=== PATIENT | female | born 1950 | race Caucasian/White ===

== ENCOUNTER 2021-08-31 09:33 | Observation (INO) | payer MEDICARE, BC ==
[2021-08-31] MEDS ORDERED: Labetalol HCl 100 MG/20 ML VIAL ONE (09:55)
[2021-08-31] MEDS ORDERED: Hydrochlorothiazide 25 MG TAB PO SCH (10:30)
[2021-08-31 10:35] LABS: #Basophils 0.1 thou/uL (0.0-0.2); #Eosinphils 0.1 thou/uL (0.0-0.7); #Lymphocytes 1.7 thou/uL (1.20-3.40); #Monocytes 0.4 thou/uL (0.11-0.59); #Neutrophils 3.2 thou/uL (1.40-6.50); %Basophils 0.9 % (0.0-1.0); %Eosinophils 2.1 % (0.0-10.0); %Lymphocytes 30.9 % (21.0-51.0); %Monocytes 7.6 % (0.0-10.0); %Neutrophils 58.5 % (42.0-75.0); Hemoglobin 15.5 g/dL (12.0-16.0); Mean Corpuscular HGB CONC 33.4 g/dL (32.0-36.0); Mean Corpuscular Hemoglobin 32.8 pg (27.0-31.0); Mean Corpuscular Volume 98.3 fL (78.0-98.0); Mean Platelet Volume 7.7 fL (7.4-10.4); Platelet Count 250 thou/uL (130-400); RBC Distribution Width 11.8 % (11.5-14.5); Red Blood Cell (RBC) Count 4.71 mill/uL (4.20-5.40); White Blood Cell (WBC) Count 5.4 thou/uL (4.8-10.8)
[2021-08-31 10:59] LABS: ALT (SGPT) 21 U/L (8-55); AST (SGOT) 20 U/L (5-34); Albumin 4.9 g/dL (3.4-4.8); Alkaline Phosphatase 81 U/L (40-110); Anion Gap 14 mmol/L (10-20); BUN (Urea Nitrogen) 16 mg/dL (9.8-20.1); Bilirubin, Total 0.5 mg/dL (0.2-1.2); Calc. Creatinine Clearance 0 mL/min (70-130); Calcium 9.8 mg/dL (7.8-10.44); Carbon Dioxide 29 mmol/L (23-31); Chloride 105 mmol/L (98-107); Globulin 3.1 g/dL (2.4-3.5); Glucose 111 mg/dL (80-115); Magnesium 2.3 mg/dL (1.6-2.6); Potassium 3.9 mmol/L (3.5-5.1); Sodium 144 mmol/L (136-145)
[2021-08-31] MEDS ORDERED: Aspirin Chewable 81 MG TAB ONE ×2 (11:49)
[2021-08-31] MEDS ORDERED: Iopamidol-370 76% 500 ML 1 ML ONE (16:06)
[2021-08-31] MEDS ORDERED: Acetaminophen 325 MG TAB PO PRN (17:06)
[2021-08-31] MEDS ORDERED: Ondansetron ODT 4 MG TAB PO PRN (17:06)
[2021-08-31 19:48] VITALS: BMI 23.5
[2021-08-31] MEDS ORDERED: hydrALAZINE 20 MG/ML VIAL SLOW IVP PRN (21:17)
[2021-08-31] MEDS: Heparin 5,000 UNITS/ML VIAL SC SCH (21:25)
[2021-08-31] MEDS: Metoprolol Tartrate 25 MG TAB PO SCH (21:34)
[2021-08-31] MEDS: Famotidine 20 MG TAB PO SCH (21:34)
[2021-09-01 05:23] LABS: #Eosinphils 0.2 thou/uL (0.0-0.7); #Lymphocytes 1.7 thou/uL (1.20-3.40); #Monocytes 0.5 thou/uL (0.11-0.59); #Neutrophils 3.4 thou/uL (1.40-6.50); %Basophils 0.8 % (0.0-1.0); %Eosinophils 3.6 % (0.0-10.0); %Lymphocytes 29.4 % (21.0-51.0); %Monocytes 8.2 % (0.0-10.0); Hemoglobin 15.2 g/dL (12.0-16.0); Mean Corpuscular Hemoglobin 32.3 pg (27.0-31.0); Mean Corpuscular Volume 97.9 fL (78.0-98.0); Mean Platelet Volume 7.8 fL (7.4-10.4); Platelet Count 257 thou/uL (130-400); RBC Distribution Width 11.9 % (11.5-14.5); White Blood Cell (WBC) Count 5.8 thou/uL (4.8-10.8)
[2021-09-01 05:53] LABS: Anion Gap 14 mmol/L (10-20); BUN (Urea Nitrogen) 12 mg/dL (9.8-20.1); Calc. Creatinine Clearance 71 mL/min (70-130); Calcium 9.8 mg/dL (7.8-10.44); Carbon Dioxide 29 mmol/L (23-31); Cardiac Risk 2.7 (Less than 4.5); Chloride 100 mmol/L (98-107); Cholesterol 194 mg/dl (< 200 Desired); Glucose 95 mg/dL (80-115); HDL Cholesterol 72 mg/dL (>60 Neg Risk); LDL Cholesterol, Calculated 92 mg/dL; Potassium 3.6 mmol/L (3.5-5.1); Sodium 139 mmol/L (136-145); Triglycerides 151 mg/dL (Less than 150)
[2021-09-01] MEDS ORDERED: Losartan 25 MG TAB PO SCH (09:00)
[2021-09-01] MEDS ORDERED: Erythromycin Base 0.5% Oint 1 GM TUBE EA EYE SCH ×2 (09:00→15:00)
[2021-09-01] MEDS ORDERED: Aspirin 81 mg Enteric Coated Tablet PO SCH (09:00)
[2021-09-01] MEDS: Metoprolol Tartrate 25 MG TAB PO SCH (10:18)
[2021-09-01] MEDS: Heparin 5,000 UNITS/ML VIAL SC SCH (10:23)
[2021-09-01] MEDS: Famotidine 20 MG TAB PO SCH (11:07)
[2021-09-01 15:33] VITALS: TEMP 98.3
[2021-09-01 15:39] LABS: SARS-CoV-2 PCR by NAA Not Detected (NotDetected)
[2021-09-01] MEDS ORDERED: hydrALAZINE 25 MG TAB PO PRN (17:44)
[2021-09-01 17:54] VITALS: BP 132/83
[2021-09-01] MEDS ORDERED: Rosuvastatin 5 MG TAB PO SCH (21:00)
[2021-09-01] MEDS ORDERED: Rosuvastatin 10 MG TAB PO SCH (21:00)
[2021-09-02] MEDS ORDERED: Valsartan 80 MG TAB PO SCH (09:00)
== END 2021-09-01 19:21 | disposition home or self-care (01) ==
LOC: ERS 09:33 → NEURO 17:00
PROVIDERS: ADMIT Family Medicine; ATTEND Family Medicine
DX: I16.0 Hypertensive urgency (principal); G45.9 Transient cerebral ischemic attack, unspecified; H10.9 Unspecified conjunctivitis; I10 Essential (primary) hypertension; E78.5 Hyperlipidemia, unspecified; I48.91 Unspecified atrial fibrillation; M47.22 Other spondylosis with radiculopathy, cervical region; M48.02 Spinal stenosis, cervical region; Z79.899 Other long term (current) drug therapy; Z20.822 Contact with and (suspected) exposure to COVID-19
CPT/HCPCS: 70450; 70496; 70498; 70551; 71045; 72125; 80048; 80061; 83735; 83880; 84443; 84484; 85025; 93005; 96374; 97139 ×3; 97535; 99285; U0003; U0005; 36415; 80053; G0378; J1644; Q9967